=== PATIENT | female | born 1985 | race Hispanic/Latino ===

== ENCOUNTER 2017-04-06 08:12 | Outpatient (CLI) | payer BC ==
[~2017-04-06] VITALS: Ht 149.9 cm; Wt 70.9 kg
[~2017-04-06 08:12] MED LIST: Motrin PO; PRENATAL CAPSU1 EACH PO; Percocet 5/325,Endoc PO; Tylenol Extra Streng PO
[2017-04-06 08:33] VITALS: BP 114/67
[2017-04-06 09:43] VITALS: BP 114/72
[2017-04-06] MEDS ORDERED: PRENATAL TABLE1 EAC3 PO (17:10)
[2017-04-06] MEDS ORDERED: IBUPROFEN800 MG PO (23:59)
== END 2017-04-06 11:25 | disposition home or self-care (01) ==
LOC: LDRP-OP 08:12 → 2WEST 08:14 → LDRP-OP 05-17 07:24
DX: O47.1 False labor at or after 37 completed weeks of gestation (principal); Z3A.38 38 weeks gestation of pregnancy
CPT/HCPCS: 59025; G0378

== ENCOUNTER 2017-04-06 14:08 | Inpatient (IN) | payer BC ==
[2017-04-06] VITALS (17 sets, daily range): BP systolic 101–143; BP diastolic 56–115
[2017-04-06 15:10] LABS: EOSINOPHIL (%) 0.7 % (0-5); EOSINOPHIL COUNT 0.1 K/uL (0-0.3); HEMATOCRIT 30.6 % (36.0-46.0); IMMATURE GRANULOCYTE (%) 0.4 % (0.0-0.7); MCH 28.8 PG (29.0-34.0); MCHC 33.3 G/DL (30.0-36.0); MCV 86.4 FL (83-99); MEAN PLAT.VOLUME 13.5 uM^3 (9.5-12.4); MONOCYTE (%) 8.7 % (3-12); MONOCYTE COUNT 0.6 K/uL (0-0.8); NEUTROPHIL (%) 59.6 % (45-76); PLATELET COUNT 119 K/uL (156-360); RBC DIS.WIDTH-CV 13.7 % (11.8-14.6); RED BLOOD COUNT 3.54 M/uL (3.80-5.20); WHITE BLOOD COUNT 6.7 K/uL (4.1-10.2)
[2017-04-06] MEDS ORDERED: PRENATAL TABLE1 EAC3 PO (17:10)
[2017-04-06] MEDS ORDERED: IBUPROFEN800 MG PO (23:59)
[2017-04-07 00:11] VITALS: BP 114/66
[2017-04-07 01:14] VITALS: BP 103/57
[2017-04-07 02:38] VITALS: BP 107/60
[2017-04-07 07:43] VITALS: BP 113/57
[2017-04-07 14:48] VITALS: BP 103/51
[2017-04-08 07:39] VITALS: BP 108/67
== END 2017-04-08 11:05 | disposition home or self-care (01) | DRG 775 ==
LOC: LDRP-OP 14:08 → 2WEST 14:10 → LDRP-OP 05-17 13:55
PROVIDERS: Advanced Practice Midwife
PROC: 00HU33Z Insertion of Infusion Device into Spinal Canal, Percutaneous Approach (ICD-10-PCS; principal; 2017-04-06)
PROC: 3E0R3BZ Introduction of Anesthetic Agent into Spinal Canal, Percutaneous Approach (ICD-10-PCS; principal; 2017-04-06)
PROC: 10E0XZZ Delivery of Products of Conception, External Approach (ICD-10-PCS; principal; 2017-04-06)
DX: O99.340 Other mental disorders complicating pregnancy, unspecified trimester (principal); F41.9 Anxiety disorder, unspecified; O99.824 Streptococcus B carrier state complicating childbirth; Z3A.38 38 weeks gestation of pregnancy; Z37.0 Single live birth
CPT/HCPCS: 85025; 99281; 99285; C1755; J7120